=== PATIENT | female | born 1930 | race Caucasian/White ===

== ENCOUNTER → 2017-04-02 | Day surgery (SDC) | payer MEDICARE ==
[~2017-04-02] VITALS: Ht 165.1 cm; Wt 57.3 kg
[~2017-04-02] MED LIST: ASPIRIN LO-DOSE81 MG PO; BYSTOLIC20 MG PO; CALCIUM500 MG PO; COUMADIN **IA2.5 MG PO; FISH OIL 1,0001 EAC3 PO; MULTI-VITAMIN1 EAC1 PO; VITAMIN B-121000 MCG PO; VITAMIN C250 MG PO; VITAMIN D-32000 UNI1 PO
[2017-04-02 09:18] LABS: INR - (THERAPEUTIC) 1.02 (0.92-1.07); PROTIME 10.7 SECONDS (9.8-11.4)
== END | disposition disaster alternative care site (69) ==
LOC: GPOC 03-27 09:00 → GEND 08:28
PROVIDERS: Internal Medicine Gastroenterology
DX: D12.0 Benign neoplasm of cecum (principal); K31.7 Polyp of stomach and duodenum; K57.30 Diverticulosis of large intestine without perforation or abscess without bleeding; K64.8 Other hemorrhoids; K44.9 Diaphragmatic hernia without obstruction or gangrene; I10 Essential (primary) hypertension; I48.0 Paroxysmal atrial fibrillation; Z90.49 Acquired absence of other specified parts of digestive tract; Z79.01 Long term (current) use of anticoagulants; Z79.899 Other long term (current) drug therapy; Z85.72 Personal history of non-Hodgkin lymphomas; Z98.890 Other specified postprocedural states
CPT/HCPCS: J2001; J7030